=== PATIENT | female | born 1955 | race Caucasian/White ===

== ENCOUNTER 2017-12-17 02:56 | Observation (INO) | payer OTHER ==
--- NOTE | 2017-12-17 03:36 | PDOC ---
History of Present Illness - General Stated Complaint: FLU LIKE SYMPTOMS Time Seen by Provider: 12/17/17 03:18 History Source: Patient Exam Limitations: No Limitations - History of Present Illness Initial Comments: 12/17/17 03:39 This 62-year-old woman with past medical history of HIV (CD4- 568, VL- undetectable), osteoarthritis, right total knee replacement and fatty liver who presents to the emergency department with 1 day of cough, abdominal pain and vomiting. Patient states she was in her usual state of health until yesterday afternoon when her grandson came to the house and had been coughing. Patient reports tactile fevers and sweating. Patient has global headache which she states worsens with vomiting. Abdominal pain is centered at the epigastrium rated 8/10 describes as an "aching, throbbing." Patient reports compliance with all her medications including the Atripla and Valtrex. Patient denies any chest pain, shortness of breath, sore throat or diarrhea. PMH: HIV positive, osteoarthritis PSH: Right total knee replacement ID: Dmitry Gunn at [facility] Past History - Past Medical History Allergies/Adverse Reactions: Allergies Allergy/AdvReac Type Severity Reaction Status Date / Time No Known Allergies Allergy Verified 12/17/17 04:11 Home Medications: Ambulatory Orders Efavirenz/Emtricitab/Tenofovir [Atripla -] 1 tab PO DAILY 12/17/17 Omeprazole Magnesium [Prilosec Otc] 20 mg PO DAILY 12/17/17 Valacyclovir HCl [Valtrex -] 500 mg PO WEEKLY 12/17/17 Review of Systems - Review of Systems Able to Perform ROS?: Yes Is the patient limited Danish proficient: No Constitutional: Yes: See HPI HEENTM: No: Symptoms Reported Respiratory: Yes: See HPI Cardiac (ROS): No: Symptoms Reported ABD/GI: Yes: See HPI : No: Symptoms Reported Musculoskeletal: No: Symptoms Reported Integumentary: No: Symptoms Reported Neurological: No: Symptoms reported Endocrine: No: Symptoms Reported Hematologic/Lymphatic: No: Symptoms Reported *Physical Exam - Physical Exam General Appearance: Yes: Appropriately Dressed. No: Apparent Distress HEENT: positive: [place], Tonsillar Erythema Neck: positive: Trachea midline, Supple Respiratory/Chest: positive: Lungs Clear, Normal Breath Sounds. negative: Respiratory Distress, Accessory Muscle Use Cardiovascular: positive: Regular Rhythm, Regular Rate, S1, S2, Murmur. negative: Edema Gastrointestinal/Abdominal: positive: Normal Bowel Sounds, Tender (RUQ and epigastrum), Soft Musculoskeletal: positive: Normal Inspection. negative: CVA Tenderness Extremity: positive: Normal Capillary Refill, Normal Inspection, Normal Range of Motion Integumentary: positive: Normal Color, Warm, Diaphoresis Neurologic: positive: water supervisor II-XII NML intact, Fully Oriented, Alert, Normal Mood/ Affect, Normal Response, Motor Strength 03/30 ED Treatment Course - LABORATORY CBC & Chemistry Diagram: 12/17/17 03:37 12/17/17 03:37 Medical Decision Making - Medical Decision Making 12/17/17 03:39 A/P: This 62-year-old woman with past medical history of HIV(CD4- 568, VL- undetectable), osteoarthritis, right total knee replacement who presents to the emergency department with 1 day of cough, abdominal pain and vomiting. Patient states she was in her usual state of health until yesterday afternoon when her grandson came to the house and had been coughing. Patient reports tactile fevers and sweating. Patient has global headache which she states worsens with vomiting. Abdominal pain is centered at the epigastrium rated 8/10 describes as an "aching, throbbing." Patient reports compliance with all her medications including the Atripla and Valtrex. Patient denies any chest pain, shortness of breath, sore throat or diarrhea. Examination of the oropharynx reveals erythema and swelling of tonsils. No exudate noted. No tenderness to sinus palpation. No cervical lymphadenopathy present. Patient speaking in full sentences. Lungs clear to auscultation bilaterally. Regular rate and rhythm. No murmur, rub or gallop noted. Obese abdomen soft nondistended but tender to epigastrium and RUQ. Diaphoresis noted to patient's forehead. Differential diagnosis includes viral illness, influenza, pneumonia, ACS, pancreatitis, cholecystitis I will collect CBC, CMP, lipase, influenza, urinalysis, rapid strep, chest x-ray , EKG, cardiac profile. I'll reevaluate patient after all testing has been completed 12/17/17 03:58 X-rays read by me: No active cardiopulmonary disease at this time. 12/17/17 05:59 CT abdomen and pelvis with contrast is read by Dr. Nalaboff: Lung bases are clear. Visualized cardiac chambers are normal size and configuration. There is inflammation around both adrenal glands, left greater than right of unclear etiology. Normal liver, gallbladder, pancreas, spleen and kidneys. The stomach abdominal small and large bowel are normal. There is no aortic aneurysm. There is no significant retroperitoneal lymphadenopathy. Pelvic small large bowel are normal the appendix is normal. The uterus and adnexal structures are normal. Urinary bladder is unremarkable. There is no pelvic free fluid. No discrete pelvic lymphadenopathy is identified. Impression: Bilateral adrenal inflammation of unclear etiology. No other localized findings for acute pathology. Given HIV positive, mildly elevated white count with left shift and influenza A positive, I will admit patient to hospitalist service. 12/17/17 06:12 Case d/w Dr. Mena who accepts patient for med/surg observation. *DC/Admit/Observation/Transfer Diagnosis at time of Disposition: Influenza A - Discharge Dispostion Condition at time of disposition: Guarded Admit: Yes - Referrals - Patient Instructions - Post Discharge Activity
[2017-12-17] MEDS ORDERED: LIDOCAINE VISCOUS 2% ORAL/TOP 20 ML UNIT-DOSE CUP MM ONE (03:45)
[2017-12-17] MEDS ORDERED: MAG HYDROX/AL HYDROX/SIMETH 355 ML ORAL.SUSP PO ONE (03:45)
[2017-12-17] MEDS ORDERED: ONDANSETRON 4 MG/2 ML VIAL IVPUSH ONE (03:46)
[2017-12-17] MEDS ORDERED: MAG HYDROX/AL HYDROX/SIMETH 30 ML UNIT-DOSE CUP ONE (03:50)
[2017-12-17 03:52] LABS: EOS % 0.1 % (0-4.5); HEMOGLOBIN 15.7 GM/dL (10.7-15.3)
[2017-12-17 04:03] LABS: BASO % 0.3 % (0-2.0); HEMATOCRIT 46.8 % (32.4-45.2); MCH 31.3 pg (25.7-33.7); MCHC 33.5 g/dl (32.0-36.0); MEAN CELL VOLUME 93.5 fl (80-96); MEAN PLT VOLUME 9.9 fl (7.5-11.1); MONO % 4.5 % (3.8-10.2); NEUT % 92.1 % (42.8-82.8); PLATELET COUNT 142 K/MM3 (134-434); RDW 13.2 % (11.6-15.6); WHITE BLOOD COUNT 11.2 K/mm3 (4.0-10.0)
[2017-12-17] MEDS ORDERED: MAG HYDROX/AL HYDROX/SIMETH 30 ML UNIT-DOSE CUP PO ONE (04:15)
[2017-12-17 04:29] LABS: ALBUMIN 3.5 g/dl (3.4-5.0); ALK PHOS 137 U/L (45-117); ANION GAP 9 (8-16); BILIRUBIN,TOTAL 0.7 mg/dL (0.2-1.0); BLOOD UREA NITROGEN 9 mg/dL (7-18); CALCIUM 8.3 mg/dL (8.5-10.1); CHLORIDE 100 mmol/L (98-107); CO2 23 mmol/L (21-32); CREATININE 0.7 mg/dL (0.55-1.02); GLUCOSE,RANDOM 213 mg/dL (74-106); SGPT/ALT 54 U/L (12-78); SODIUM 132 mmol/L (136-145); TOT PROT 7.6 g/dl (6.4-8.2)
[2017-12-17 04:30] LABS: POTASSIUM 3.8 mmol/L (3.5-5.1); SGOT/AST 45 U/L (15-37)
[2017-12-17] MEDS ORDERED: morphine SULFATE 4 MG/ML VIAL IVPUSH ONE (06:06)
[2017-12-17] MEDS ORDERED: morphine CARPU-JECT 10 MG/1 ML DISP.SYRIN ONE (06:09)
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
[2017-12-17] MEDS ORDERED: ONDANSETRON 4 MG/2 ML VIAL IVPUSH PRN (11:21)
[2017-12-17] MEDS ORDERED: ACETAMINOPHEN 325 MG TABLET (FP) PO PRN (11:21)
[2017-12-17] MEDS ORDERED: PATIENT'S OWN MEDICATION (NON-FORMULARY) (Efavirenz/Emtricitab/Tenofovir 1 TAB) PO SCH (12:00)
[2017-12-17] MEDS ORDERED: valACYclovir HCL 500 MG TABLET (FP) PO SCH (12:00)
[2017-12-17] MEDS: SODIUM CHLORIDE 1,000 ML IV SCH (12:01)
[2017-12-17] MEDS: OSELTAMIVIR PHOSPHATE 75 MG CAPSULE PO SCH ×2 (12:27→21:38)
[2017-12-17] MEDS: PANTOPRAZOLE 20 MG TABLET (FP) PO SCH (12:27)
--- NOTE | 2017-12-17 13:22 | PN ---
Teaching Attending Note Name of Resident: Luna Hermosillo ATTENDING PHYSICIAN STATEMENT I saw and evaluated the patient. I reviewed the resident's note and discussed the case with the resident. I agree with the resident's findings and plan as documented. SUBJECTIVE: OBJECTIVE: Vital Signs Period Temp Pulse Resp BP Sys/[place] Pulse Ox Last 24 Hr 98.8 F-99.0 F 80-84 18-18 129-137/69-97 96-99 Laboratory Tests 12/17/17 12/17/17 12/17/17 03:36 03:37 03:37 WBC 11.2 H RBC 5.00 Hgb 15.7 H Hct 46.8 H MCV 93.5 MCH 31.3 MCHC 33.5 RDW 13.2 Plt Count 142 MPV 9.9 Neutrophils % 92.1 H Lymphocytes % 3.0 L Monocytes % 4.5 Eosinophils % 0.1 Basophils % 0.3 Sodium 132 L Potassium 3.8 Chloride 100 Carbon Dioxide 23 Anion Gap 9 BUN 9 Creatinine 0.7 Creat Clearance w eGFR > 60 Random Glucose 213 H Calcium 8.3 L Total Bilirubin 0.7 AST 45 H ALT 54 Alkaline Phosphatase 137 H Creatine Kinase Troponin I Total Protein 7.6 Albumin 3.5 Lipase 76 12/17/17 03:44 WBC RBC Hgb Hct MCV MCH MCHC RDW Plt Count MPV Neutrophils % Lymphocytes % Monocytes % Eosinophils % Basophils % Sodium Potassium Chloride Carbon Dioxide Anion Gap BUN Creatinine Creat Clearance w eGFR Random Glucose Calcium Total Bilirubin AST ALT Alkaline Phosphatase Creatine Kinase 141 Troponin I < 0.02 Total Protein Albumin Lipase Home Medications Medication Instructions Recorded Efavirenz/Emtricitab/Tenofovir 1 tab PO DAILY 12/17/17 [Atripla -] Omeprazole Magnesium [Prilosec Otc] 20 mg PO DAILY 12/17/17 Valacyclovir HCl [Valtrex -] 500 mg PO WEEKLY 12/17/17 ASSESSMENT AND PLAN:
[2017-12-17 15:11] VITALS: BMI 38.7
[2017-12-17 17:48] LABS: URINE APPEARANCE CLEAR; URINE BILIRUBIN NEGATIVE (NEGATIVE); URINE BLOOD 2+ (NEGATIVE); URINE COLOR YELLOW; URINE GLUCOSE (UA) NEGATIVE (NEGATIVE); URINE KETONE NEGATIVE (NEGATIVE); URINE LEUK ESTERASE NEGATIVE (NEGATIVE); URINE NITRITE NEGATIVE (NEGATIVE); URINE UROBILINOGEN NEGATIVE mg/dL (0.2-1.0)
[2017-12-17 17:55] LABS: URINE PROTEIN 1+ (NEGATIVE)
[2017-12-17 18:02] LABS: EPI CELLS RARE /HPF (FEW); URINE BACTERIA RARE /hpf (NONE SEEN); URINE MUCUS RARE
[2017-12-17] MEDS: TENOFOVIR DISOPROXIL FUMARATE 300 MG TABLET PO SCH (18:41)
[2017-12-17] MEDS: EFAVIRENZ 600 MG TABLET PO SCH (18:41)
[2017-12-17] MEDS: EMTRICITABINE 200 MG CAPSULE PO SCH (18:41)
[2017-12-18] MEDS: SODIUM CHLORIDE 1,000 ML IV SCH (06:01)
[2017-12-18 08:18] VITALS: BP 111/63; PULSE 69; TEMP 99.4
[2017-12-18 08:33] LABS: BASO % 0.4 % (0-2.0); HEMATOCRIT 42.6 % (32.4-45.2); HEMOGLOBIN 14.4 GM/dL (10.7-15.3); LYMPH % 13.4 % (8-40); MCH 31.5 pg (25.7-33.7); MCHC 33.8 g/dl (32.0-36.0); MEAN CELL VOLUME 93.2 fl (80-96); MEAN PLT VOLUME 9.3 fl (7.5-11.1); MONO % 11.1 % (3.8-10.2); NEUT % 73.1 % (42.8-82.8); PLATELET COUNT 137 K/MM3 (134-434); RBC 4.57 M/mm3 (3.60-5.2); RDW 13.3 % (11.6-15.6); WHITE BLOOD COUNT 6.9 K/mm3 (4.0-10.0)
[2017-12-18] MEDS ORDERED: PT OWN MED DRAWER 7, Y5N ONE (10:13)
[2017-12-18] MEDS: PANTOPRAZOLE 20 MG TABLET (FP) PO SCH (10:15)
[2017-12-18] MEDS: TENOFOVIR DISOPROXIL FUMARATE 300 MG TABLET PO SCH ×2 (10:15→10:22)
[2017-12-18] MEDS: OSELTAMIVIR PHOSPHATE 75 MG CAPSULE PO SCH (10:15)
[2017-12-18] MEDS: EMTRICITABINE 200 MG CAPSULE PO SCH ×2 (10:15→10:21)
[2017-12-18] MEDS: EFAVIRENZ 600 MG TABLET PO SCH ×2 (10:15→10:21)
--- NOTE | 2017-12-18 10:27 | DS ---
Physical Exam: SUBJECTIVE: Patient seen and examined at bedside. Feels better today. No acute events overnight. OBJECTIVE: Vital Signs Period Temp Pulse Resp BP Sys/Manning Pulse Ox Last 24 Hr 98.8 F-99.4 F 69-87 16-20 101-116/63-72 96-96 PHYSICAL EXAM GENERAL: The patient is awake, alert, and fully oriented, in no acute distress. HEAD: Normal with no signs of trauma. EYES: extraocular movements intact, sclera anicteric, conjunctiva clear. ENT: Ears normal, nares patent NECK: full range of motion, supple. LUNGS: Breath sounds equal, clear to auscultation bilaterally, no wheezes, no crackles, no accessory muscle use. HEART: Regular rate and rhythm, S1, S2 without murmur, rub or gallop. ABDOMEN: Soft, nontender, nondistended, normoactive bowel sounds. EXTREMITIES: warm, well-perfused NEUROLOGICAL: Cranial nerves II through XII grossly intact. Normal speech, gait not observed. PSYCH: Normal mood, normal affect. SKIN: Warm, dry LABS Laboratory Results - last 24 hr 12/17/17 12/18/17 16:58 07:00 WBC 6.9 D RBC 4.57 Hgb 14.4 Hct 42.6 MCV 93.2 MCH 31.5 MCHC 33.8 RDW 13.3 Plt Count 137 MPV 9.3 Neutrophils % 73.1 D Lymphocytes % 13.4 D Monocytes % 11.1 H D Eosinophils % 2.0 D Basophils % 0.4 Urine Color Yellow Urine Appearance Clear Urine pH 6.0 Ur Specific [place] 1.015 Urine Protein 1+ H Urine Glucose (UA) Negative Urine Ketones Negative Urine Blood 2+ H Urine Nitrite Negative Urine Bilirubin Negative Urine Urobilinogen Negative Ur Leukocyte Esterase Negative Urine WBC (Auto) 2 Urine RBC (Auto) 13 Ur Epithelial Cells Rare Urine Bacteria Rare Urine Mucus Rare HOSPITAL COURSE: Date of Admission:12/17/17 Date of Discharge: 12/18/17 62 y/o F w/PMH of HIV (CD4 - 568 and undetectable viral load), OA, GERD, fatty liver presented to ER with abd pain, vomiting, and sore throat x1 day. Pt found to be influenza A positive and started on tamiflu 75 mg bid. Pt had CXR which showed no acute pathology. Abd/Pelvis CT w/contrast also done which showed: 1. Enlargement of L adrenal gland with mild inflam changes seen about both kidneys of unclear etiology; 2. No evidence of acute pathology w/in the abd or pelvis. Pt presented w/WBC of 11.2 which came down to 6.9 on following day. Pt stated she felt better overnight and was agreeable with plan to c/w tamiflu at home and had no episodes of nausea or vomiting and was able to eat breakfast the following morning after presentation. Pt advised to take tylenol for fevers/ chills or fatigue. Pt to f/u with PCP in 1 week (Dr. Dmitry Gunn). Minutes to complete discharge: 35 Discharge Summary Reason For Visit: INFLUENZA TYPE A Current Active Problems Influenza A (Acute) GERD (gastroesophageal reflux disease) (Chronic) HIV (human immunodeficiency virus infection) (Chronic) Condition: Guarded - Instructions Diet, Activity, Other Instructions: You were admitted to the hospital for the flu. You will need to continue taking tamiflu (oseltamivir) for 4 more days. It is to be taken twice a day until finished. The medication has been prescribed to your pharmacy. If you have fevers or are not feeling well or feeling fatigued take tylenol. Please be careful not to take more than 2 grams (2000 milligrams) of tylenol per day. You will need to follow up with your regular doctor (Dr. Gunn) in 1 week. Please let him know about this hospitalization. If you begin to have high fevers or worsening of your condition, call your regular doctor or come back to the ER. Referrals: STAFF,NOT ON [Non Staff, Medical] - 1 Week (Dr. Gunn) - Home Medications Comprehensive Discharge Medication List: Ambulatory Orders Efavirenz/Emtricitab/Tenofovir [Atripla -] 1 tab PO DAILY 12/17/17 Omeprazole Magnesium [Prilosec Otc] 20 mg PO DAILY 12/17/17 Oxycodone HCl/Acetaminophen [Percocet 5-325 mg Tablet] 1 - 2 tab PO Q6H Valacyclovir HCl [Valtrex -] 500 mg PO WEEKLY 12/17/17 Oseltamivir Phosphate [Tamiflu] 75 mg PO BID #7 capsule 12/18/17 This patient is new to me today: Yes Date on this admission: 12/18/17 Emergency Visit: Yes ED Registration Date: 12/17/17 Care time: The patient presented to the Emergency Department on the above date and was hospitalized for further evaluation of their emergent condition. Critical Care patient: No - Discharge Referral Referred to [facility] No
[2017-12-18 10:31] LABS: ALBUMIN 3.1 g/dl (3.4-5.0); ANION GAP 8 (8-16); BLOOD UREA NITROGEN 13 mg/dL (7-18); CALCIUM 8.5 mg/dL (8.5-10.1); CHLORIDE 105 mmol/L (98-107); CO2 28 mmol/L (21-32); GLUCOSE,RANDOM 97 mg/dL (74-106); MAGNESIUM 2.4 mg/dL (1.8-2.4); POTASSIUM 4.6 mmol/L (3.5-5.1); SODIUM 141 mmol/L (136-145)
[2017-12-18 10:35] LABS: ALK PHOS 105 U/L (45-117); BILIRUBIN,TOTAL 0.4 mg/dL (0.2-1.0); CREATININE 0.7 mg/dL (0.55-1.02); PHOSPHOROUS 2.8 mg/dL (2.5-4.9); SGOT/AST 51 U/L (15-37); SGPT/ALT 55 U/L (12-78); TOT PROT 6.7 g/dl (6.4-8.2)
--- NOTE | 2017-12-18 13:43 | PN ---
Teaching Attending Note Name of Resident: Tyshawn Russell ATTENDING PHYSICIAN STATEMENT I saw and evaluated the patient. I reviewed the resident's note and discussed the case with the resident. I agree with the resident's findings and plan as documented. SUBJECTIVE: OBJECTIVE: Vital Signs Period Temp Pulse Resp BP Sys/Manning Pulse Ox Last 24 Hr 99.1 F-99.4 F 69-87 16-18 111-116/63-72 96 Laboratory Results - last 24 hr 12/17/17 12/18/17 12/18/17 16:58 07:00 07:00 WBC 6.9 D RBC 4.57 Hgb 14.4 Hct 42.6 MCV 93.2 MCH 31.5 MCHC 33.8 RDW 13.3 Plt Count 137 MPV 9.3 Neutrophils % 73.1 D Lymphocytes % 13.4 D Monocytes % 11.1 H D Eosinophils % 2.0 D Basophils % 0.4 Sodium 141 Potassium 4.6 Chloride 105 Carbon Dioxide 28 Anion Gap 8 BUN 13 Creatinine 0.7 Creat Clearance w eGFR > 60 Random Glucose 97 Calcium 8.5 Phosphorus 2.8 Magnesium 2.4 Total Bilirubin 0.4 D AST 51 H ALT 55 Alkaline Phosphatase 105 Total Protein 6.7 Albumin 3.1 L Urine Color Yellow Urine Appearance Clear Urine pH 6.0 Ur Specific [place] 1.015 Urine Protein 1+ H Urine Glucose (UA) Negative Urine Ketones Negative Urine Blood 2+ H Urine Nitrite Negative Urine Bilirubin Negative Urine Urobilinogen Negative Ur Leukocyte Esterase Negative Urine WBC (Auto) 2 Urine RBC (Auto) 13 Ur Epithelial Cells Rare Urine Bacteria Rare Urine Mucus Rare ASSESSMENT AND PLAN:
--- NOTE | 2017-12-19 12:43 | EKG ---
Test Reason : Blood Pressure : / mmHG Vent. Rate : 084 BPM Atrial Rate : 084 BPM P-R Int : 144 ms QRS Dur : 088 ms QT Int : 378 ms P-R-T Axes : 048 -15 053 degrees QTc Int : 446 ms NORMAL SINUS RHYTHM POSSIBLE LEFT ATRIAL ENLARGEMENT BORDERLINE ECG WHEN COMPARED WITH ECG OF 20-JAN-1998 11:44, VENT. RATE HAS INCREASED BY 29 BPM Confirmed by MELISSA CASILLAS, MENG ([id number]) on 12/19/2017 12:43:16 PM Referred By: Confirmed By:MENG TORRES MD
== END 2017-12-18 11:49 | disposition home or self-care (01) ==
LOC: JER 02:56 → INTOOBSV 06:13 → UNDOADMOB 06:13 → JERBED 06:13 → J6S 14:30
PROVIDERS: ADMIT Internal Medicine; ATTEND Internal Medicine
PROC: 3E033NZ Introduction of Analgesics, Hypnotics, Sedatives into Peripheral Vein, Percutaneous Approach (ICD-10-PCS; principal; 2017-12-17)
PROC: 3E033GC Introduction of Other Therapeutic Substance into Peripheral Vein, Percutaneous Approach (ICD-10-PCS; 2017-12-17)
PROC: 3E0337Z Introduction of Electrolytic and Water Balance Substance into Peripheral Vein, Percutaneous Approach (ICD-10-PCS; 2017-12-17)
DX: J09.X2 Influenza due to identified novel influenza A virus with other respiratory manifestations (principal); Z21 Asymptomatic human immunodeficiency virus [HIV] infection status; K21.9 Gastro-esophageal reflux disease without esophagitis; M19.90 Unspecified osteoarthritis, unspecified site; K76.0 Fatty (change of) liver, not elsewhere classified; Z96.651 Presence of right artificial knee joint
CPT/HCPCS: 36415; 71046-TC; 74177-TC; 80053; 81003; 81015; 82550; 83690; 83735; 84100; 84484; 85025; 87040; 87070; 87086; 87430; 87804; 93005; 93010; 96374; 96375; 99285-25; G0378